=== PATIENT | female | born 1970 | race Caucasian/White ===

== ENCOUNTER 2019-09-23 09:36 | Day surgery (SDC) | payer BC, SELFPAY ==
[2019-09-23] VITALS (9 sets, daily range): BP systolic 99–136; BP diastolic 63–82; PULSE 59–93; RESP 12–16; TEMP 36–37.1; O2SAT 94–100; BMI 25.7
--- NOTE | 2019-09-23 | PATH_ITS ---
[facility] Accession Number: [id number] . 01 Material submitted: . colon - COLON POLYP BIOPSY AT 60CM . 02 Diagnosis: Colon Polyp Biopsy At 60 CM: Portions of tubular adenoma x2. Superficial portion of colorectal mucosa x1 with a benign lymphoid aggregate. BFI 09/24/2019 1236 Local . 02 Electronically signed: . Raquel Lewis MD, Pathologist NPI- [id number] . 01 Gross description: . COLON POLYP BIOPSY AT 60CM: Received in formalin are 3 fragment(s) of levine, soft tissue measuring 0.1 x 0.1 x 0.1 cm to 0.3 x 0.3 x 0.2 cm submitted entirely in 1 cassette(s) /DIANA 09/24/2019 0039 Local . 02 Pathologist provided ICD-10: K63.5, Z12.11 . 02 CPT . 922044 Performed at: 01 [facility] [address] Formerly [facility], [place], [place] [id number] MD Pierre Alarcon MD Phone: [phone] Performed at: 02 [facility] [address] [place], [place] [id number] MD Kirti Dodson MD Phone: [phone]
--- NOTE | 2019-09-23 10:07 | P.HP_ITS ---
History of Present Illness History of Present Illness Date Patient Seen: 09/23/19 Time Patient Seen: 10:08 Chief complaint: [id number] Narrative: The patient is a woman here for her 1st colonoscopy. She has turned 49. She has no family history of colon cancer. Patient History Medical History Arthritis (Acute) Constipation (Acute) Cough (Acute) Eczema (Acute) GERD (gastroesophageal reflux disease) (Acute) Hip pain (Acute) Lichen sclerosus (Acute) Vision impairment (Acute) Family & Social History Family History (Updated 09/23/19 @ 10:08 by Luis Felipe Chawla MD) Father Cancer Meds Home Medications and Allergies Home Medications Medication Instructions Recorded Confirmed Type Fiber (psyllium husk) 1 cap PO DAILY 09/23/19 09/23/19 History esomeprazole magnesium 20 mg PO DAILY 09/23/19 09/23/19 History turmeric root extract 500 mg PO DAILY 09/23/19 09/23/19 History Allergies Allergy/AdvReac Type Severity Reaction Status Date / Time Sulfa (Sulfonamide Allergy Mild Hives Verified 09/23/19 09:53 Antibiotics) erythromycin base AdvReac Mild Stomach Verified 09/23/19 09:53 Cramps Review of Systems Review of Systems Narrative: Has a history of reflux disease. Is on omeprazole. ROS: Yes All systems reviewed with the patient and are negative except as otherwise documented Exam Vital Signs (past 8 hours): - 09/23/19 10:05 Temperature 97.3 F L Pulse Rate 93 H Respiratory Rate 12 Blood Pressure 136/82 Pulse Oximetry 97 Oxygen Delivery Method Room Air Narrative Exam Narrative: Pleasant cooperative patient no apparent distress. Lungs are clear to auscultation. No rales or rhonchi. Heart regular rate and rhythm no murmur gallop. Abdomen is soft nontender without mass. No obvious hernias. Patient is alert and oriented x3. Assessment & Plan Assessment & Plan narrative: The patient for a screening colonoscopy. I have discussed the procedure with them. Risks of bleeding, perforation which would necessitate major operation, failure to find remove all lesions, the potential t attoo were all discussed. All questions were answered. They wished to proceed.
[2019-09-23] MEDS: LACTATED RINGERS 1,000 ML 200 ML IV (10:16)
[2019-09-23] MEDS: MIDAZOLAM 5 MG/5 ML VIAL IV (10:24)
[2019-09-23] MEDS: fentaNYL 250 MCG/5 ML INJ IV (10:25)
--- NOTE | 2019-09-23 10:26 | PM.PREOP ---
Pre-operative Note COVID-19 COVID-19 status: Negative Result date/Date tested (Pos, Neg/Pending): 09/20/19 Interval Note History & Physical reviewed/Exam performed by Physician: Yes Changes to H&P: No
--- NOTE | 2019-09-23 10:56 | PM.OP.ENDO ---
Operative Date/Time/Diagnoses Date of procedure: 09/23/19 Time of procedure: 10:56 Pre-op diagnosis: Screening exam. This is the patient's 1st colonoscopy. She recently turned 49. Post-op diagnosis: same (Rare diverticulosis of the sigmoid colon. One tiny polyp at 60 cm from the anal verge.) Procedure & Clinicians Study performed: Colonoscopy with cold biopsy Same procedure as scheduled: Yes Indications: Screening exam due to age Surgeon: Luis Felipe Chawla Procedure Notes SCOAP/Timeout: Performed Procedure in detail: The patient was placed in the left lateral decubitus position and underwent IV sedation directed by the surgeon consisting of fentanyl and Versed. Digital exam was unremarkable. The scope was inserted and advanced through the rectum into the sigmoid, descending, transverse, and ascending colon. Patient was noted to have a few diverticuli in her sigmoid colon.. The cecum was reached identified by the ileocecal valve and the appendiceal opening. The ileocecal valve was successfully cannulated. The terminal ileum was normal in appearance. The scope was gradually brought out. One small Polyp was found at 60 minutes cm from the anal verge and it was completely removed with biopsy forceps. The scope ultimately was retroflexed in the rectum. The appearance was remarkable for small non ulcerated hemorrhoids.. The scope was removed and the patient tolerated the procedure well. The prep was very good. Scope withdrawal time: Over 9 minutes(10.75 total) Sedation minutes: 27 Findings: diverticulosis (Sigmoid colon) and polyp (Tiny polyp at 60 cm) Specimen(s): other (Polyp) Complications: none Post-procedure Recommendations: Colonscopy in 5 years (If the polyp is not adenomatous I would recommend a colonoscopy in 10 years instead. Await the pathology report.) Follow up: as needed Disposition: PACU
--- NOTE | 2019-09-23 13:32 | SUR.PHASEII ---
Pt was very somnolent when arriving in phase 2. BP and HR were low. Allowed pt to sleep and monitor VS. BP and HR increased. Pt's SO at bedside. Upon d/c, pt was more awake, d/c instrucitons provided to pt and her SO. pt left in w/c with RN escort.
== END 2019-09-23 13:05 | disposition home or self-care (01) ==
PROVIDERS: Family Provider Registered Nurse Women's Health Care, Ambulatory; PCP Family Medicine; Referring Provider Family Medicine; Visit Provider Specialist
PROC: 0DJD8ZZ Inspection of Lower Intestinal Tract, Via Natural or Artificial Opening Endoscopic (ICD-10-PCS; CPT 45378; principal; 2019-09-23 10:45)
DX: Z12.11 Encounter for screening for malignant neoplasm of colon (principal); K21.9 Gastro-esophageal reflux disease without esophagitis; K63.5 Polyp of colon; K57.30 Diverticulosis of large intestine without perforation or abscess without bleeding
CPT/HCPCS: 45380; 99152; 99153; J2250; J3010